=== PATIENT | male | born 1975 | race Two or more races ===

== ENCOUNTER 2023-01-30 07:41 | Emergency (ER) | payer MEDICAID ==
[~2023-01-30] VITALS: Ht 205.7 cm; Wt 90.0 kg
[2023-01-30 07:50] VITALS: BP 195/111
[2023-01-30] MEDS ORDERED: cloNIDine HCL 0.1 MG TAB PO ONE (08:00)
[2023-01-30] MEDS ORDERED: PIPERACILLIN-TAZOB 3.375GM 100 ML IV ONE (08:15)
== END 2023-01-30 09:30 | disposition left against medical advice (07) ==
LOC: ER 07:41
DX: I96 Gangrene, not elsewhere classified (principal); M86.9 Osteomyelitis, unspecified; I10 Essential (primary) hypertension; E11.9 Type 2 diabetes mellitus without complications
CPT/HCPCS: 82962